=== PATIENT | male | born 1975 | race Caucasian/White ===

== ENCOUNTER 2020-04-02 22:04 | Emergency (ER) | payer SELFPAY ==
[~2020-04-02] VITALS: Ht 190.5 cm; Wt 84.0 kg
--- NOTE | 2020-04-02 22:22 | NUR ---
Patient presents to ER c/o acute left side CP starting approx 1999 causing SOB. Pain does not radiate. Denies N/V. Never experienced these symptoms before. On Sven patient experienced swelling in bilat legs; resolved over the weekend. Today they are more swollen than usual. Patient is in obvious pain and diaphoretic.
[2020-04-02] MEDS ORDERED: MORPHINE SULFATE 4 MG/ML, 1ML IVPush PRN (23:00)
[2020-04-02] MEDS ORDERED: ONDANSETRON 2MG/ML, 2ML IVPush ONE (23:00)
--- NOTE | 2020-04-02 23:08 | NUR ---
CTA PENDING LAB/CREATINE.
[2020-04-02 23:13] LABS: ALANINE AMINOTRANSFERASE 47 U/L (12-78); ALBUMIN 3.9 g/dL (3.4-5.0); ANION GAP 7 mmol/L (5-15); CALCIUM 9.2 mg/dL (8.5-10.1); CHLORIDE 111 mmol/L (98-107); CREATININE 1.35 mg/dL (0.7-1.3)
[2020-04-02 23:17] LABS: ALKALINE PHOSPHATASE 43 U/L (45-117); BILIRUBIN,TOTAL 0.4 mg/dL (0.2-1.0); TOTAL PROTEIN 7.9 g/dL (6.4-8.2); TROPONIN I < 0.015 ng/mL (0.000-0.045)
[2020-04-02 23:20] LABS: MEAN CORPUSCULAR HEMOGLOBIN 30.8 pg (27.5-34.5); MEAN CORPUSCULAR HGB CONC 33.4 g/dL (33.2-36.2); MEAN CORPUSCULAR VOLUME 92.3 fL (81-97); MEAN PLATELET VOLUME 9.1 fL (7.4-10.4); PLATELET COUNT 241 x10^3/uL (130-400); RED BLOOD COUNT 4.74 x10^6/uL (4.38-5.82); RED CELL DISTRIBUTION WIDTH 13.8 % (9.4-14.8)
[2020-04-02] MEDS ORDERED: MORPHINE SULFATE 4 MG/ML, 1ML ONE (23:26)
[2020-04-02] MEDS ORDERED: ONDANSETRON 2MG/ML, 2ML ONE (23:26)
[2020-04-02 23:42] LABS: MD YES
[2020-04-02] MEDS ORDERED: OMNIPAQUE 350 MG/ML, 75ML BOTTLE ONE (23:47)
[2020-04-02 23:58] LABS: <RBC MORPHOLOGY> NORMAL; BASOS% (MANUAL) 1 % (0-1); EOS#(MANUAL) 0.61 x10^3/uL (0.0-0.4); EOS% (MANUAL) 6 % (1-7); LYMPH#(MANUAL) 3.94 x10^3/uL (1-3.4); LYMPHS% (MANUAL) 39 % (22-44); MONOS% (MANUAL) 2 % (2-9); SEG#(MANUAL) 5.25 x10^3/uL (1.8-6.8); SEGS% (MANUAL) 52 % (42-75)
[2020-04-02 23:59] LABS: <PLATELET ESTIMATE> ADEQUATE; <PLT MORPHOLOGY> NORMAL PLT MORPH
[2020-04-03 00:22] LABS: INTERNATIONAL NORMALIZED RATIO 0.96 (0.93-1.1); PROTHROMBIN TIME 10.2 Seconds (9.6-11.5)
[2020-04-03 01:22] VITALS: BP 127/77
[2020-04-03] MEDS ORDERED: METHOCARBAMOL 500 MG TABLET ONE (01:29)
[2020-04-03] MEDS ORDERED: METHOCARBAMOL 750 MG TABLET PO ONE (01:30)
[2020-04-03] MEDS ORDERED: METHOCARBAMOL 750 MG TABLET ONE (01:32)
--- NOTE | 2020-04-03 02:02 | NUR ---
Lab in room for repeat trop.
[2020-04-03 02:28] LABS: TROPONIN I < 0.015 ng/mL (0.000-0.045)
--- NOTE | 2020-04-03 02:43 | NUR ---
Discharge instructions given. All questions and concerns addressed. Patient ambulatory with a steady gait. Belongings with patient.
== END 2020-04-02 23:29 ==
LOC: ED 23:23
DX: R07.89 Other chest pain (principal); M79.89 Other specified soft tissue disorders; R00.0 Tachycardia, unspecified; R06.02 Shortness of breath; Z72.9 Problem related to lifestyle, unspecified
CPT/HCPCS: 36415; 71045; 71275; 80053; 83880; 84484; 85025; 85610; 85730; 93005; 96374; 96375; 99285; J2270; J2405; Q9967